=== PATIENT | male | born 2005 | race Hispanic/Latino ===

== ENCOUNTER 2024-11-11 09:45 | Emergency (ER) | payer MEDICAID ==
[~2024-11-11] VITALS: Ht 172.7 cm; Wt 70.3 kg
[2024-11-11] MEDS: 0.9%NACL 1000ML 1,000 ML IV ONE (10:44)
[2024-11-11] MEDS: PROCHLORPERAZINE 10MG/2ML INJ IV ONE (10:44)
[2024-11-11] MEDS: DiphenhydrAMINE HCL 50 MG/ML VIAL IM ONE (10:45)
[2024-11-11] MEDS: ketOROlac 30MG VIAL (30MG/ML) IVP ONE (10:46)
--- NOTE | 2024-11-11 11:17 | ERN ---
General Chief Complaint: Headache Stated Complaint: HEADACHE Time Seen by MD: 09:49 Source: patient History of Present Illness Initial Comments This is a 19-year-old male with no pertinent past medical history who presented to the emergency room with a headache of 1 day duration. Headache is located bilaterally in the frontal and temporal regions of the head, describes the pain as constant in frequency dull and throbbing in character, 10/10 in severity. States that the pain is worse with bright lights and slightly relieved with Tylenol there is associated nausea, vomiting. Denies any fever, neck stiffness, weakness or numbness. Patient states he has had similar episodes in the past but this particular episode is more persistent. No history of the recent head trauma, no vision changes, no focal neurological deficits or recent illness. Patient states that he has been stressed at work lately. Allergies: Coded Allergies: No Known Drug Allergies (Unverified Allergy, Unknown, 11/11/24) Home Meds Active Scripts Butalb/Acetaminophen/Caffeine (Fioricet) 50 Mg-325 Mg-40 Mg Tab, 1 TAB PO QID PRN for headache for 10 Days, #30 TAB Prov:HUSSAIN GONZALEZ DO 11/11/24 Past Medical History Past Medical History: No Pertinent History Past Surgical History: None ROS Dictation Constitutional: No appetite loss, No fevers, chills , No night sweats, No weakness, fatigue Eye: No vision change, No redness, pain or discharge ENT: No hearing loss, ear pain or discharge, No nose bleeds, No sore throat, Neck: No swelling. pain or stiffness Respiratory: No cough, shortness of breath, wheezing Cardiovascular: No chest pain,, palpitations, dyspnea, No edema Gastrointestinal: No abdominal pain, No nausea, vomiting, No diarrhea, constipation Genitourinary: No painful urination, No blood in urine, No urinary incontinence, No frequency or urgency Musculoskeletal: No joint pain, muscle pain, swelling or stiffness Neurological: No numbness, tingling, No weakness, tremors or seizures Headache Psychiatric: : No depression, No anxiety, No sleep disturbance, No Memory changes Lymphatic: No easy bruising, No bleeding tendencies , No swollen lymph nodes A 13-point Review of Systems was assessed, all of which are negative except for HPI or as indicated above. Physical Exam Physical Exam Dictation General: Alert & Oriented, No acute distress. EENT: No conjunctival redness or discharge noted Tympanic membranes are clear, Normal hearing, Oral mucosa is moist, No pharyngeal erythema, No nasal discharge, No oral lesions. Neck: Non-tender, No jugular vein distention, No lymphadenopathy, No thyromegaly, Supple. Respiratory: Lungs are clear to auscultation, Respirations are non-labored, Breath sounds are equal, No chest wall tenderness, _. Cardiovascular: Normal rate, Normal rhythm, No murmur, Good pulses equal in all extremities, Normal peripheral perfusion, No edema. Gastrointestinal: Soft, Non-tender, Non-distended, Normal bowel sounds, No organomegaly, _. Musculoskeletal: Normal range of motion, Normal strength, No tenderness, No swelling, No deformity, Normal gait. Integumentary: Warm, Dry, Rupert, Intact, No pallor, No rash. Neurologic: Alert, Oriented x4, Normal sensory, No focal defects Psychiatric: Cooperative, Appropriate mood & affect, Normal judgement, Non- suicidal. MDM ' Differential Diagnosis * Migraine headache Assessment: Order Toradol 30 mg IV, Compazine 10 mg IV, and Benadryl 25 mg IM for adequate pain management. We will rehydrate the patient with a Liter bolus of normal saline I will re-evaluate the patient after treatment and diagnostic exams have returned to determine whether they require further testing, can be safely discharged home, or need admission for further treatment and evaluation. Given the social determinants of health affecting care, including literacy, access to medical care, prescription drug management, and [id number] drugs, I will ensure that treatment plans are tailored accordingly. Revaluation : Patient is alert and oriented. States he feels a lot better . Disposition: Will discharge patient at this time with prescription of Fioricet 2 tabs as needed for pain and instructions to follow up with PCP for further evaluation and treatment. Attestation: Patient's case was discussed with the ER MD. Reviewed the documentation, medical decision making and treatment plan. Agrees with the findings and plan of care. ED Course Orders Procedure Category Date Status Time Ketorolac PHA 11/11/24 Complete Tromethamine 30mg/Ml 10:30 Prochlorperazine PHA 11/11/24 Complete 10mg/2ml Inj 10:30 Diphenhydramine Hcl PHA 11/11/24 Complete (Benadryl Inj) 10:30 0.9%Nacl 1000ml (Ns PHA 11/11/24 Complete 1000ml) 10:30 Current Medications Medications (Trade) Dose Ordered Sig/Terri Route PRN Reason Start Time Stop Time Status Last Admin Dose Admin Diphenhydramine HCl (BENAdryl INJ) 25 mg ONCE ONCE IM 11/11/24 10:30 11/11/24 10:31 DC 11/11/24 10:45 Ketorolac Tromethamine (toRADol) 30 mg ONCE ONCE IVP 11/11/24 10:30 11/11/24 10:31 DC 11/11/24 10:46 Prochlorperazine Edisylate (Compazine 10mg/ 2ml Inj) 10 mg ONCE ONCE IV 11/11/24 10:30 11/11/24 10:31 DC 11/11/24 10:44 Sodium Chloride 1,000 ml @ 0 mls/hr ONCE ONCE IV 11/11/24 10:30 11/11/24 10:31 DC 11/11/24 10:44 Vital Signs Date Time Temp Pulse Resp B/P (MAP) Pulse Ox O2 Delivery O2 Flow Rate FiO2 11/11/24 11:25 99.0 85 20 131/83 99 Room Air* 0 21 11/11/24 09:47 98.8 89 20 140/89 99 Room Air DX & DISP Disposition: Discharge Departure Impression: Primary Impression: Migraine headache Critical Time: 30 minutes Condition: Stable Scripts Butalb/Acetaminophen/Caffeine (Fioricet) 50 Mg-325 Mg-40 Mg Tab 1 TAB PO QID PRN for headache for 10 Days, #30 TAB Prov: HUSSAIN GONZALEZ DO 11/11/24 Additional Instructions: Discharge Instructions: *Follow up with your primary care physician in 2 - 3 days after discharge. *Continue all medications as prescribed. Do not discontinue or change dosages without consulting your PCP. *Gradually resume normal activities as tolerated. *Continue a balanced diet . Reduce salt intake to help manage BP. *Seek immediate medical attention if you experience chest pain, SOB or severe headache. *Smoking cessation is strongly advised. Resources for quitting smoking are available upon request. Referrals: SELF,REFERRAL (PCP) I performed a substantive portion of the visit. I have reviewed and personally made and approve the management plan that is documented in the notes by myself with JUAN/resident. I acknowledged full responsibility for the patient's management plan. 19-year-old male with a migraine. Resolved with treatment in the ER. Low suspicion for any life threats. MARYBEL VIEIRA MD Nov 11, 2024 11:17 HUSSAIN GONZALEZ DO Nov 11, 2024 11:57
[2024-11-11 11:25] VITALS: BP 131/83; PULSE 85; RESP 20; TEMP 98.9; O2SAT 99
[2024-11-11] MEDS ORDERED: FIORIT PO (11:56)
== END 2024-11-11 12:08 | disposition home or self-care (01) ==
LOC: EDH 09:45
DX: G43.909 Migraine, unspecified, not intractable, without status migrainosus (principal)
CPT/HCPCS: 99284; 96374; 96361; 96375; 96372; J1885; J1200; J7030; J0780